=== PATIENT | male | born 1985 | race Caucasian/White ===

== ENCOUNTER 2023-01-17 21:46 | Emergency (ER) | payer OTHER, MEDICAID, SELFPAY ==
[2023-01-17 21:52] VITALS: BP 138/71; PULSE 66; RESP 17; TEMP 36.7; O2SAT 99; BMI 22.1
[2023-01-17 23:19] LABS: MANUAL DIFF FLAG NO
[2023-01-17 23:20] LABS: Basophils Absolute Auto 0.1 X10*3/uL (0.0-0.2); Basophils Percent Auto 1.1 % (0-2); Eosinophils Absolute Auto 0.3 X10*3/uL (0.0-0.4); Eosinophils Percent Auto 4.1 % (0-4); Hematocrit 34.3 % (42.0-52.0); Hemoglobin 11.8 g/dl (14.0-18.0); Imm Gran Abs Auto 0.01 X10*3/uL (0.00-0.03); Imm Gran Pct Auto 0.1 % (0.0-0.4); Lymphocytes Percent Auto 55.7 % (20-40); Mean Corpuscular HGB Conc 34.4 g/dl (31.0-36.0); Mean Corpuscular Hemoglobin 33.4 pg (27.0-33.0); Mean Corpuscular Volume 97.2 fL (80.0-98.0); Mean Platelet Volume 10.5 fL (9.4-12.4); Monocytes Absolute Auto 0.7 X10*3/uL (0.1-1.2); Monocytes Percent Auto 9.8 % (2-11); Neutrophils Absolute Auto 2.1 x10*3/uL (2.0-8.3); Neutrophils Percent Auto 29.2 % (45-73); Platelet Count 234 X10*3/uL (160-400); Red Blood Count 3.53 X10*6/uL (4.60-5.80); Red Cell Distribution Width 12.9 % (11.0-16.0); White Blood Count 7.1 X10*3/uL (4.8-10.8)
[2023-01-17 23:34] LABS: COVID-19 Test Negative (Negative); IDNOW Serial# 6674DD1D
[2023-01-17 23:35] LABS: Alanine Aminotransferase 21 U/L (0-40); Albumin Level 4.1 g/dL (3.5-5.0); Alkaline Phosphatase 62 U/L (39-117); Anion Gap 10 (12-20); Aspartate Amino Transferase 23 U/L (5-37); Bilirubin Total 0.3 mg/dL (0.0-1.0); Blood Urea Nitrogen 26 mg/dL (9-16); Calcium 9.2 mg/dL (8.4-10.2); Carbon Dioxide 30 mmol/L (22-29); Chloride 103 mmol/L (96-108); Creatinine Clr Calc Pharmacy 92.6; Estimated Glomerular Filt Rate > 60; Ethanol < 10 mg/dL; Glucose Random 73 mg/dL (60-115); Potassium 4.6 mmol/L (3.3-5.1); Sodium 138 mmol/L (135-145); Total Protein 6.9 g/dL (6.5-8.0)
[2023-01-17 23:43] LABS: Amphetamine Screen Urine Not Detected (Not Detect); Barbiturates, Urine Not Detected (Not Detect); Benzodiazepines Screen Urine Not Detected (Not Detect); Cannabinoid Screen Urine POSITIVE (Not Detect); Cocaine Screen Urine POSITIVE (Not Detect); Fentanyl, urine POSITIVE (Not Detect); Opiate Screen Urine POSITIVE (Not Detect); Phencyclidine Screen Urine Not Detected (Not Detect)
--- NOTE | 2023-01-18 01:57 | ED_ITS ---
HPI - Psych General Chief Complaint: Psychiatric Symptoms <BANDAR Miguel - Last Filed: 01/18/23 17:39> Stated Complaint: SI, NO PLAN PER EMS <BANDAR Miguel - Last Filed: 01/18/23 17:39> Time Seen by Provider: 01/17/23 22:27 <BANDAR Miguel - Last Filed: 01/18/23 17:39> Source: patient <BANDAR Miguel - Last Filed: 01/18/23 17:39> Mode of arrival: ambulatory <BANDAR Miguel - Last Filed: 01/18/23 17:39> Limitations: no limitations <BANDAR Miguel Last Filed: 01/18/23 17:39> History of Present Illness HPI Narrative: 37-year-old male presents to the ED for suicidal ideation. Patient was in [facility] when he made those comments. Patient has no actual plan. <BANDAR Miguel Last Filed: 01/18/23 17:39> Related Data Home Medications: Home Medications Medication Instructions Recorded Confirmed sertraline 50 mg tablet 50 mg PO DAILY 01/17/23 01/17/23 trazodone 50 mg tablet 50 mg PO BEDTIME 01/17/23 01/17/23 methadone 10 mg/mL oral concentrate 55 mg PO DAILY 01/18/23 01/18/23 <BANDAR Miguel - Last Filed: 01/18/23 17:39> Allergies/Adverse Reactions: Allergies Allergy/AdvReac Type Severity Reaction Status Date / Time No Known Allergies Allergy Verified 01/17/23 21:51 <BANDAR Miguel Last Filed: 01/18/23 17:39> Review of Systems Review of Systems: Suicidal ideation without any plan <BANDAR Miguel - Last Filed: 01/18/23 17:39> Yes all other systems are reviewed and are negative <BANDAR Miguel - Last Filed: 01/18/23 17:39> [facility] Social History Social History: Social History Advance Directives: No Advance Directives Information Provided: Yes Healthcare Proxy: No Guardian: No <BANDAR Miguel Last Filed: 01/18/23 17:39> Physical Exam Vital Signs: Vital Signs: Last Vital Signs Temp 97.3 F 01/18/23 09:08 Pulse 50 01/18/23 09:08 Resp 18 01/18/23 09:08 BP 129/68 01/18/23 09:08 Pulse Ox 100 01/18/23 09:08 O2 Del Method Room Air 01/18/23 09:08 BMI result Body Mass Index 22.1 <BANDAR Miguel Last Filed: 01/18/23 17:39> Vital Signs: Last Vital Signs Temp 97.3 F 01/18/23 09:08 Pulse 50 01/18/23 09:08 Resp 18 01/18/23 09:08 BP 129/68 01/18/23 09:08 Pulse Ox 100 01/18/23 09:08 O2 Del Method Room Air 01/18/23 09:08 BMI result Body Mass Index 22.1 <Kai Hurst MD - Last Filed: 01/18/23 07:53> Const: General: cooperative, healthy appearing, comfortable, no acute d istress, well developed, alert, awake and Physically active <BANDAR Miguel Last Filed: 01/18/23 17:39> Orientation/consciousness: oriented to person, oriented to place, oriented to time and patient oriented x3 <BANDAR Miguel Last Filed: 01/18/23 17:39> HEENT: Head: Yes normal to inspection, Yes No palpable skull fracture present, Yes normocephalic, Yes atraumatic and No abrasion <BANDAR Miguel Last Filed: 01/18/23 17:39> Eyes: General: appearance normal, both eyes and all related structures <BANDAR Miguel Last Filed: 01/18/23 17:39> Neck: Neck: Yes normal visual inspection, Yes full ROM, Yes no lymphadenopathy, Yes no meningeal signs, Yes trachea midline, Yes supple, No anterior neck swelling and No tender <BANDAR Miguel Last Filed: 01/18/23 17:39> Chest: Chest palpation & inspection: normal inspection of the chest and normal palpation of entire chest wall <BANDAR Miguel Last Filed: 01/18/23 17:39> Resp: Effort & Inspection: normal respiratory effort and able to speak in complete sentences <BANDAR Miguel Last Filed: 01/18/23 17:39> Auscultation: clear to auscultation bilaterally <BANDAR Miguel Last Filed: 01/18/23 17:39> Cardio: Jugular venous distension: no JVD <BANDAR Miguel Navneet Last Filed: 01/18/23 17:39> Heart sounds: S1 normal heart sound present and S2 normal heart sound present <BANDAR Miguel Navneet Last Filed: 01/18/23 17:39> GI: Inspection: Yes normal to inspection and No abdominal wall ecchymosis <BANDAR Miguel Navneet Last Filed: 01/18/23 17:39> Palpation (GI): Soft to palpation, not firm, nontender and not rigid <BANDAR Miguel Navneet Last Filed: 01/18/23 17:39> : General: No CVA tenderness and Yes no CVA tenderness <BANDAR Miguel Navneet Last Filed: 01/18/23 17:39> Back/Spine/Pelvis: Back: no CVA tenderness, No CVA tenderness and No back tenderness <BANDAR Miguel Navneet Last Filed: 01/18/23 17:39> Skin: General skin exam: no rashes or lesions noted and elasticity normal <BANDAR Miguel Navneet Last Filed: 01/18/23 17:39> Neuro: General: oriented to person, oriented to place, oriented to time, patient oriented x3, gait normal, moves all extremities, Normal light touch and pain sensation, no meningeal signs, no focal motor deficits, CN's II-XI intact bilaterally and normal sensation to monofilament <BANDAR Miguel Last Filed: 01/18/23 17:39> Extrem: General: Yes normal to inspection and Yes full ROM <BANDAR Miguel Last Filed: 01/18/23 17:39> Psych: Appearance: grossly normal, well kempt and not disheveled <BANDAR Miguel Last Filed: 01/18/23 17:39> Course Course Course Narrative: 37-year-old male suicidal ideation but no plan. <BANDAR Miguel Last Filed: 01/18/23 17:39> Reevaluation(s) Reevaluation #1: Labs are normal and at baseline. Patient denied any distress. Patient awaiting care team evaluation <BANDAR Miguel - Last Filed: 01/18/23 17:39> Time: 02:12 <BANDAR Miguel - Last Filed: 01/18/23 17:39> Reevaluation #2: Start physician observation. The patient has been in the emergency department for approximately 10 hours, he presented for evaluation depression and suicidal ideation. There were no reported incidents by nursing staff on this patient overnight . The patient urine tox screen was positive for opiates, fentanyl, cocaine and marijuana. The patient is waiting for care team evaluation. Patient's medications have been reconciled and I will order the medicines. <Kai Hurst MD - Last Filed: 01/18/23 07:53> Time: 07:35 <Kai Hurst MD - Last Filed: 01/18/23 07:53> Medications Administered Generic Name Dose Route Start Last Admin Trade Name Freq PRN Reason Stop Dose Admin Methadone HCl 55 mg 01/18/23 09:30 01/18/23 09:42 Methadone Hcl 20 Mg/2 Ml Oral.Conc PO 55 mg DAILY SHIRA Administration Sertraline HCl 50 mg 01/18/23 09:00 01/18/23 08:49 Sertraline Hcl 50 Mg Tablet PO 50 mg DAILY SHIRA Administration <BANDAR Miguel - Last Filed: 01/18/23 17:39> Medications Administered Generic Name Dose Route Start Last Admin Trade Name Freq PRN Reason Stop Dose Admin Methadone HCl 55 mg 01/18/23 09:30 01/18/23 09:42 Methadone Hcl 20 Mg/2 Ml Oral.Conc PO 55 mg DAILY SHIRA Administration Sertraline HCl 50 mg 01/18/23 09:00 01/18/23 08:49 Sertraline Hcl 50 Mg Tablet PO 50 mg DAILY SHIRA Administration <Kai Hurst MD - Last Filed: 01/18/23 07:53> Medical Decision Making Medical Decision Making MDM Narrative: Perineum with suicidal ideation without any plan. Patient to be comfortably. Clinical workup normal waiting care team evaluation <BANDAR Miguel - Last Filed: 01/18/23 17:39> Differential Diagnosis Differential Diagnoses: The differential diagnosis associated with the presentation includes (S uicidal, homicidal, depression,) <BANDAR Miguel - Last Filed: 01/18/23 17:39> Admission/Observation Consideration of admission/observation: Escalation of care including admission/observation considered <BANDAR Miguel - Last Filed: 01/18/23 17:39> Lab Data Result Diagrams: 01/17/23 23:13 01/17/23 23:13 <BANDAR Miguel - Last Filed: 01/18/23 17:39> Labs: Lab Results 01/17/23 01/17/23 01/17/23 Range/Units 23:13 23:13 23:13 WBC 7.1 (4.8-10.8) X10*3/uL RBC 3.53 L (4.60-5.80) X10*6/uL Hgb 11.8 L (14.0-18.0) g/dl Hct 34.3 L (42.0-52.0) % MCV 97.2 (80.0-98.0) fL MCH 33.4 H (27.0-33.0) pg MCHC 34.4 (31.0-36.0) g/dl RDW 12.9 (11.0-16.0) % Plt Count 234 (160-400) X10*3/uL MPV 10.5 (9.4-12.4) fL Immature Gran % (Auto) 0.1 (0.0-0.4) % Neut % (Auto) 29.2 L (45-73) % Lymph % (Auto) 55.7 H (20-40) % [place] % (Auto) 9.8 (2-11) % Eos % (Auto) 4.1 H (0-4) % Baso % (Auto) 1.1 (0-2) % Lymph # (Auto) 4.0 (1.2-4.9) X10*3/uL [place] # (Auto) 0.7 (0.1-1.2) X10*3/uL Eos # (Auto) 0.3 (0.0-0.4) X10*3/uL Baso # (Auto) 0.1 (0.0-0.2) X10*3/uL Abs Immat Gran (auto) 0.01 (0.00-0.03) X10*3/uL Absolute Neuts (auto) 2.1 (2.0-8.3) x10*3/uL Absolute Nucleated RBC 0.000 (0.0-0.012) X10*3/uL Nucleated RBC % (auto) 0.0 (0.0-0.2) /100WBC Sodium 138 (135-145) mmol/L Potassium 4.6 (3.3-5.1) mmol/L Chloride 103 (96-108) mmol/L Carbon Dioxide 30 H (22-29) mmol/L Anion Gap 10 L (12-20) BUN 26 H (9-16) mg/dL Creatinine 1.03 (0.5-1.4) mg/dL Estim Creat Clear Calc 92.6 Estimated GFR > 60 Random Glucose 73 (60-115) mg/dL Calcium 9.2 (8.4-10.2) mg/dL Total Bilirubin 0.3 (0.0-1.0) mg/dL AST 23 (5-37) U/L ALT 21 (0-40) U/L Alkaline Phosphatase 62 (39-117) U/L Total Protein 6.9 (6.5-8.0) g/dL Albumin 4.1 (3.5-5.0) g/dL Urine Opiates Screen (Not Detect) Urine Fentanyl Screen (Not Detect) Ur Barbiturates Screen (Not Detect) Ur Phencyclidine Scrn (Not Detect) Ur Amphetamines Screen (Not Detect) U Benzodiazepines Scrn (Not Detect) Urine Cocaine Screen (Not Detect) U Marijuana (THC) Screen (Not Detect) Ethyl Alcohol < 10 mg/dL COVID-19 (ANUJ) Negative (Negative) COVID-19 Clin Com See Note 01/17/23 Range/Units 23:27 WBC (4.8-10.8) X10*3/uL RBC (4.60-5.80) X10*6/uL Hgb (14.0-18.0) g/dl Hct (42.0-52.0) % MCV (80.0-98.0) fL MCH (27.0-33.0) pg MCHC (31.0-36.0) g/dl RDW (11.0-16.0) % Plt Count (160-400) X10*3/uL MPV (9.4-12.4) fL Immature Gran % (Auto) (0.0-0.4) % Neut % (Auto) (45-73) % Lymph % (Auto) (20-40) % [place] % (Auto) (2-11) % Eos % (Auto) (0-4) % Baso % (Auto) (0-2) % Lymph # (Auto) (1.2-4.9) X10*3/uL [place] # (Auto) (0.1-1.2) X10*3/uL Eos # (Auto) (0.0-0.4) X10*3/uL Baso # (Auto) (0.0-0.2) X10*3/uL Abs Immat Gran (auto) (0.00-0.03) X10*3/uL Absolute Neuts (auto) (2.0-8.3) x10*3/uL Absolute Nucleated RBC (0.0-0.012) X10*3/uL Nucleated RBC % (auto) (0.0-0.2) /100WBC Sodium (135-145) mmol/L Potassium (3.3-5.1) mmol/L Chloride (96-108) mmol/L Carbon Dioxide (22-29) mmol/L Anion Gap (12-20) BUN (9-16) mg/dL Creatinine (0.5-1.4) mg/dL Estim Creat Clear Calc Estimated GFR Random Glucose (60-115) mg/dL Calcium (8.4-10.2) mg/dL Total Bilirubin (0.0-1.0) mg/dL AST (5-37) U/L ALT (0-40) U/L Alkaline Phosphatase (39-117) U/L Total Protein (6.5-8.0) g/dL Albumin (3.5-5.0) g/dL Urine Opiates Screen POSITIVE H (Not Detect) Urine Fentanyl Screen POSITIVE H (Not Detect) Ur Barbiturates Screen Not Detected (Not Detect) Ur Phencyclidine Scrn Not Detected (Not Detect) Ur Amphetamines Screen Not Detected (Not Detect) U Benzodiazepines Scrn Not Detected (Not Detect) Urine Cocaine Screen POSITIVE H (Not Detect) U Marijuana (THC) Screen POSITIVE H (Not Detect) Ethyl Alcohol mg/dL COVID-19 (ANJU) (Negative) COVID-19 Clin Com <BANDAR Miguel - Last Filed: 01/18/23 17:39> Lab Results 01/17/23 01/17/23 01/17/23 Range/Units 23:13 23:13 23:13 WBC 7.1 (4.8-10.8) X10*3/uL RBC 3.53 L (4.60-5.80) X10*6/uL Hgb 11.8 L (14.0-18.0) g/dl Hct 34.3 L (42.0-52.0) % MCV 97.2 (80.0-98.0) fL MCH 33.4 H (27.0-33.0) pg MCHC 34.4 (31.0-36.0) g/dl RDW 12.9 (11.0-16.0) % Plt Count 234 (160-400) X10*3/uL MPV 10.5 (9.4-12.4) fL Immature Gran % (Auto) 0.1 (0.0-0.4) % Neut % (Auto) 29.2 L (45-73) % Lymph % (Auto) 55.7 H (20-40) % [place] % (Auto) 9.8 (2-11) % Eos % (Auto) 4.1 H (0-4) % Baso % (Auto) 1.1 (0-2) % Lymph # (Auto) 4.0 (1.2-4.9) X10*3/uL [place] # (Auto) 0.7 (0.1-1.2) X10*3/uL Eos # (Auto) 0.3 (0.0-0.4) X10*3/uL Baso # (Auto) 0.1 (0.0-0.2) X10*3/uL Abs Immat Gran (auto) 0.01 (0.00-0.03) X10*3/uL Absolute Neuts (auto) 2.1 (2.0-8.3) x10*3/uL Absolute Nucleated RBC 0.000 (0.0-0.012) X10*3/uL Nucleated RBC % (auto) 0.0 (0.0-0.2) /100WBC Sodium 138 (135-145) mmol/L Potassium 4.6 (3.3-5.1) mmol/L Chloride 103 (96-108) mmol/L Carbon Dioxide 30 H (22-29) mmol/L Anion Gap 10 L (12-20) BUN 26 H (9-16) mg/dL Creatinine 1.03 (0.5-1.4) mg/dL Estim Creat Clear Calc 92.6 Estimated GFR > 60 Random Glucose 73 (60-115) mg/dL Calcium 9.2 (8.4-10.2) mg/dL Total Bilirubin 0.3 (0.0-1.0) mg/dL AST 23 (5-37) U/L ALT 21 (0-40) U/L Alkaline Phosphatase 62 (39-117) U/L Total Protein 6.9 (6.5-8.0) g/dL Albumin 4.1 (3.5-5.0) g/dL Urine Opiates Screen (Not Detect) Urine Fentanyl Screen (Not Detect) Ur Barbiturates Screen (Not Detect) Ur Phencyclidine Scrn (Not Detect) Ur Amphetamines Screen (Not Detect) U Benzodiazepines Scrn (Not Detect) Urine Cocaine Screen (Not Detect) U Marijuana (THC) Screen (Not Detect) Ethyl Alcohol < 10 mg/dL COVID-19 (ANUJ) Negative (Negative) COVID-19 Clin Com See Note 01/17/23 Range/Units 23:27 WBC (4.8-10.8) X10*3/uL RBC (4.60-5.80) X10*6/uL Hgb (14.0-18.0) g/dl Hct (42.0-52.0) % MCV (80.0-98.0) fL MCH (27.0-33.0) pg MCHC (31.0-36.0) g/dl RDW (11.0-16.0) % Plt Count (160-400) X10*3/uL MPV (9.4-12.4) fL Immature Gran % (Auto) (0.0-0.4) % Neut % (Auto) (45-73) % Lymph % (Auto) (20-40) % [place] % (Auto) (2-11) % Eos % (Auto) (0-4) % Baso % (Auto) (0-2) % Lymph # (Auto) (1.2-4.9) X10*3/uL [place] # (Auto) (0.1-1.2) X10*3/uL Eos # (Auto) (0.0-0.4) X10*3/uL Baso # (Auto) (0.0-0.2) X10*3/uL Abs Immat Gran (auto) (0.00-0.03) X10*3/uL Absolute Neuts (auto) (2.0-8.3) x10*3/uL Absolute Nucleated RBC (0.0-0.012) X10*3/uL Nucleated RBC % (auto) (0.0-0.2) /100WBC Sodium (135-145) mmol/L Potassium (3.3-5.1) mmol/L Chloride (96-108) mmol/L Carbon Dioxide (22-29) mmol/L Anion Gap (12-20) BUN (9-16) mg/dL Creatinine (0.5-1.4) mg/dL Estim Creat Clear Calc Estimated GFR Random Glucose (60-115) mg/dL Calcium (8.4-10.2) mg/dL Total Bilirubin (0.0-1.0) mg/dL AST (5-37) U/L ALT (0-40) U/L Alkaline Phosphatase (39-117) U/L Total Protein (6.5-8.0) g/dL Albumin (3.5-5.0) g/dL Urine Opiates Screen POSITIVE H (Not Detect) Urine Fentanyl Screen POSITIVE H (Not Detect) Ur Barbiturates Screen Not Detected (Not Detect) Ur Phencyclidine Scrn Not Detected (Not Detect) Ur Amphetamines Screen Not Detected (Not Detect) U Benzodiazepines Scrn Not Detected (Not Detect) Urine Cocaine Screen POSITIVE H (Not Detect) U Marijuana (THC) Screen POSITIVE H (Not Detect) Ethyl Alcohol mg/dL COVID-19 (ANUJ) (Negative) COVID-19 Clin Com <Kai Hurst MD - Last Filed: 01/18/23 07:53> Discharge Plan Discharge Clinical Impression: Depression <BANDAR Miguel - Last Filed: 01/18/23 17:39> Patient Disposition: Still a Patient <BANDAR Mgiuel - Last Filed: 01/18/23 17:39> Prescriptions: No Action trazodone 50 mg tablet 50 mg PO BEDTIME sertraline 50 mg tablet 50 mg PO DAILY methadone 10 mg/mL Concentrate 55 mg PO DAILY <BANDAR Miguel - Last Filed: 01/18/23 17:39> Interventions: [place]-Suicide Risk Severity Scale Last Done: 01/18/23 02:10 <BANDAR Miguel - Last Filed: 01/18/23 17:39>
--- NOTE | 2023-01-18 04:41 | PC.NURSE ---
Patient slept through the night, no distress observed/reported, med rec completed/pending provider's approval, pending methadone verification [facility] clinic in [place] opens at 7 am today, verification paper ready, behavior non concerning, care consult ordered pending evaluation, will continue to monitor
[2023-01-18 06:13] VITALS: BP 100/59; PULSE 50; RESP 16; TEMP 36.4; O2SAT 97
--- NOTE | 2023-01-18 07:52 | PHA.MEDREC ---
Pharmacy Consult ? Medication Reconciliation Pharmacy has completed the medication reconciliation. Pharmacy has reviewed the med rec done by Jamshid.
[2023-01-18] MEDS: Sertraline HCL 50 MG TABLET PO (08:49)
[2023-01-18 09:08] VITALS: BP 129/68; PULSE 50; RESP 18; TEMP 36.3; O2SAT 100
--- NOTE | 2023-01-18 09:36 | HE.PHANOTE ---
Re: methadone verification [facility] last dose 55 mg on 01/17/23 @0746 verified with [facility] on 01/18/23
[2023-01-18] MEDS: methADONE HCl 20 MG/2 ML ORAL.CONC 55 MG PO (09:42)
[2023-01-18 19:53] VITALS: BP 126/69; PULSE 54; RESP 16; TEMP 36.8; O2SAT 96
[2023-01-18] MEDS: traZODone HCL 50 MG TABLET PO (20:36)
--- NOTE | 2023-01-18 21:00 | PC.NURSE ---
pt medicated per nov, resting comfortably on stretcher in no apparent distress, chocolate pudding given per pt request. will CTM.
--- NOTE | 2023-01-18 23:57 | PC.NURSE ---
Pt sleeping, respirations even and unlabored, no apparent distress at this time
--- NOTE | 2023-01-19 06:10 | PC.NURSE ---
pt continued to sleep throughout night without incident, respirations remained equal and unlabored, no apparent distress. Continue plan of care for inpatient re-evaluation
--- NOTE | 2023-01-19 06:47 | PC.NURSE ---
pt refusing vital signs at this time
[2023-01-19 08:21] VITALS: RESP 12
--- NOTE | 2023-01-19 10:00 | PC.NURSE ---
pt is a/o x 3 no sob/rhina noted speaks in full sentences. pt denies any pain/disc
[2023-01-19] MEDS: Sertraline HCL 50 MG TABLET PO (10:05)
[2023-01-19] MEDS: methADONE HCl 20 MG/2 ML ORAL.CONC 55 MG PO (10:06)
[2023-01-19] MEDS: LORazepam 1 MG TABLET 2 MG PO (10:16)
[2023-01-19 11:36] VITALS: RESP 16
--- NOTE | 2023-01-19 11:50 | PM.PSYCN ---
History of Present Illness Date of Service: 01/19/2023 Chief Complaint: SI, NO PLAN PER EMS Reason for Consult: SI Requesting physician: Jeanmarie Crain Discussed with referring provider: Yes Sources of Information: patient interviewed, chart reviewed and crisis/core team assessment reviewed HPI Narrative: Mr. Christopher is a 37 year-old male with hx of opioid (on methadone), cocaine use disorder who was brought via EMS from [facility]. Apparently, pt self presented to [facility] reporting suicidal ideation. In the ED- utox was positive for fentanyl, opioids, cocaine. Pt was seen by care team yesterday and pt reported suicidal ideation with plan to OD. Today, pt denies suicidal ideation or homicidal ideation and requests to be discharged. Pt seen in the ED. Pt reports yesterday he was having thoughts of wanting to hurt himself. He denies ever reporting homicidal ideation. Pt reports he spoke with the staff here yesterday, who pt claims, talk me out of hurting myself. Pt reports sleeping and eating well. He does report that he does not have a stable place to stay and it was good for him to rest here in the ED. He denies psychosis and does not present with s/s of responding to internal stimuli. He declines referrals for substance use. He reports he will be open to take list of mental health clinics. Pt asks if he can take a shower and eat lunch before leaving. Diagnostics Vital Signs (24Hr): Vital Signs - 24 hr 01/18/23 19:53 01/19/23 08:21 01/19/23 11:36 Temperature 98.3 F Pulse Rate 54 Respiratory Rate 16 12 16 Blood Pressure 126/69 Pulse Oximetry 96 Oxygen Delivery Method Room Air BMI result Body Mass Index 22.1 Labs 01/17/23 23:13 01/17/23 23:13 Labs: Laboratory Results - last 48 hr 01/17/23 01/17/23 01/17/23 23:13 23:13 23:13 WBC 7.1 RBC 3.53 L Hgb 11.8 L Hct 34.3 L MCV 97.2 MCH 33.4 H MCHC 34.4 RDW 12.9 Plt Count 234 MPV 10.5 Immature Gran % (Auto) 0.1 Neut % (Auto) 29.2 L Lymph % (Auto) 55.7 H [place] % (Auto) 9.8 Eos % (Auto) 4.1 H Baso % (Auto) 1.1 Lymph # (Auto) 4.0 [place] # (Auto) 0.7 Eos # (Auto) 0.3 Baso # (Auto) 0.1 Abs Immat Gran (auto) 0.01 Absolute Neuts (auto) 2.1 Absolute Nucleated RBC 0.000 Nucleated RBC % (auto) 0.0 Sodium 138 Potassium 4.6 Chloride 103 Carbon Dioxide 30 H Anion Gap 10 L BUN 26 H Creatinine 1.03 Estim Creat Clear Calc 92.6 Estimated GFR > 60 Random Glucose 73 Calcium 9.2 Total Bilirubin 0.3 AST 23 ALT 21 Alkaline Phosphatase 62 Total Protein 6.9 Albumin 4.1 Urine Opiates Screen Urine Fentanyl Screen Ur Barbiturates Screen Ur Phencyclidine Scrn Ur Amphetamines Screen U Benzodiazepines Scrn Urine Cocaine Screen U Marijuana (THC) Screen Ethyl Alcohol < 10 COVID-19 (ANUJ) Negative COVID-19 Clin Com See Note 01/17/23 23:27 WBC RBC Hgb Hct MCV MCH MCHC RDW Plt Count MPV Immature Gran % (Auto) Neut % (Auto) Lymph % (Auto) [place] % (Auto) Eos % (Auto) Baso % (Auto) Lymph # (Auto) [place] # (Auto) Eos # (Auto) Baso # (Auto) Abs Immat Gran (auto) Absolute Neuts (auto) Absolute Nucleated RBC Nucleated RBC % (auto) Sodium Potassium Chloride Carbon Dioxide Anion Gap BUN Creatinine Estim Creat Clear Calc Estimated GFR Random Glucose Calcium Total Bilirubin AST ALT Alkaline Phosphatase Total Protein Albumin Urine Opiates Screen POSITIVE H Urine Fentanyl Screen POSITIVE H Ur Barbiturates Screen Not Detected Ur Phencyclidine Scrn Not Detected Ur Amphetamines Screen Not Detected U Benzodiazepines Scrn Not Detected Urine Cocaine Screen POSITIVE H U Marijuana (THC) Screen POSITIVE H Ethyl Alcohol COVID-19 (ANUJ) COVID-19 Clin Com Mental Status Exam Mental Status Exam Narrative: Appearance: wearing hospital gown, fair hygiene (improved after showered), in NAD Behavior: superficially cooperative Psychomotor: no agitation or retardation noted Speech: clear, normal rate/rhythm/volume, spontaneous TP: linear TC: no signs of psychosis, future oriented Mood: better Affect: congruent, non labile SI: adamantly denies HI: denies VH/AH: none Delusions: none Insight/judgment: poor x 2. Memory/cog: alert, oriented x 3. grossly intact to conversational testing. Medications Medications Current Medications Lorazepam (Lorazepam 1 Mg Tablet) 2 mg PO ONCE PRN PRN Reason: Anxiety Last Admin: 01/19/23 10:16 Dose: 2 mg Methadone HCl (Methadone Hcl 20 Mg/2 Ml Oral.Conc) 55 mg PO DAILY [facility] Last Admin: 01/19/23 10:06 Dose: 55 mg Sertraline HCl (Sertraline Hcl 50 Mg Tablet) 50 mg PO DAILY [facility] Last Admin: 01/19/23 10:05 Dose: 50 mg Trazodone HCl (Trazodone Hcl 50 Mg Tablet) 50 mg PO BEDTIME [facility] Last Admin: 01/18/23 20:36 Dose: 50 mg Allergies Allergies Allergy/AdvReac Type Severity Reaction Status Date / Time No Known Allergies Allergy Verified 01/17/23 21:51 Assessment & Plan Assessment & Plan (1) Cocaine use disorder, moderate, dependence: Status: Acute Code(s): F14.20 - Cocaine dependence, uncomplicated (2) Opioid use disorder, moderate, dependence: Status: Acute Code(s): F11.20 - Opioid dependence, uncomplicated Plan Mr. Christopher is a 37 year-old male with hx of opioid, cocaine use disorder who initially self presented to [facility] reporting SI, was transported via EMS from [facility] to [facility] ED. In the ED his utox is positive for opioids, fentanyl, cocaine. Yesterday, pt reported suicidal and homicidal ideation if discharged to less restrictive setting. Today, pt reports he is feeling better, denies suicidal or homicidal ideation. He does report that resting in hospital had most benefit. He does not appear with any signs of psychosis or delusions. His thought process is linear and logical and suspect secondary gains with initial report to stay over night here in the hospital given that he does not have a stable place to live. He declines referrals for substance use. Pt given list of outpatient mental health resources should he changes his mind. Pt was given narcan prior to discharge. PLAN- No need for inpatient psych admission: Mr. Christopher does not appear at imminent risk of harming self due to suicidal or homicidal ideation. It appears, as he admits to this short story writer today, that he had hope to stay over night as he lacks stable housing. He does have chronic risk of harm due to ongoing substance use- pt at this point declines referrals to further dual dx treatment program. WE discussed at length harm reduction and was given narcan prior to discharge. He was also given list of mental health and substance use treatment resources in the community. Total time managing care of this patient today __30__ minutes.
[2023-01-19 13:00] VITALS: BP 119/74; PULSE 62; RESP 16; TEMP 36.6; O2SAT 97
[2023-01-19] MEDS: Naloxone HCl Nasal TAKE HOME 4 MG SPRAY NOSTRILALT (13:45)
== END 2023-01-19 14:18 | disposition home or self-care (01) ==
PROVIDERS: Emergency Medicine; Emergency Provider Emergency Medicine Emergency Medical Services
DX: F32.A Depression, unspecified (principal); R45.851 Suicidal ideations; Z20.822 Contact with and (suspected) exposure to COVID-19; F20.9 Schizophrenia, unspecified; F14.20 Cocaine dependence, uncomplicated; F11.20 Opioid dependence, uncomplicated; Z79.899 Other long term (current) drug therapy
CPT/HCPCS: 36415; 80053; 80307; 82077; 85025; 87635; 99284; 99285; S9485

== ENCOUNTER 2023-01-22 23:28 | Emergency (ER) | payer MEDICAID, OTHER, SELFPAY ==
[2023-01-22 23:32] VITALS: BP 123/68; PULSE 52; RESP 17; TEMP 36.6; O2SAT 97; BMI 22.1
--- NOTE | 2023-01-22 23:59 | ED.PSYCH ---
HPI - Psych General Chief Complaint: Psychiatric Symptoms Stated Complaint: Crisis SI Time Seen by Provider: 01/22/23 23:30 Source: patient and EMS Mode of arrival: EMS History of Present Illness HPI Narrative: Patient comes to the emergency room via ambulance complaining of suicidal ideation. Patient states that he was thinking about jumping off a bridge. Patient admits substance abuse. Related Data Home Medications Medication Instructions Recorded Confirmed sertraline 50 mg tablet 50 mg PO DAILY 01/17/23 01/22/23 trazodone 50 mg tablet 50 mg PO BEDTIME 01/17/23 01/22/23 methadone 10 mg/mL oral concentrate 55 mg PO DAILY 01/18/23 01/18/23 Allergies Allergy/AdvReac Type Severity Reaction Status Date / Time No Known Allergies Allergy Verified 01/17/23 21:51 Review of Systems Review of Systems: Constitutional : No Weight loss, No Fever, No Chills, No Night Sweats, No Fatigue, No Malaise ENT/Mouth : No Hearing loss, No Ear Pain, No Nasal Congestion, No Sinus Pain, No Hoarseness, No sore throat, No Rhinorrhea, No Swallowing Difficulty Eyes: No Eye Pain, No Swelling, No Redness, No Foreign Body, No Discharge, No Vision Changes Cardiovascular : No Chest Pain, No SOB, No Dyspnea on Exertion, No Orthopnea, No Edema, No Palpitations Respiratory : No Cough, No Sputum, No Wheezing, No Smoke Exposure, No Dyspnea Gastrointestinal : No Nausea, No Vomiting, No Diarrhea, No Constipation, No abdominal Pain, No Hematochezia, No Melena Genitourinary : no irregular bleeding, No Dysuria, No Urinary Frequency, No Hematuria, No Urinary Incontinence, No Urgency, No Flank Pain, No Urinary Flow Changes, No Hesitancy Musculoskeletal : No joint pain, No Myalgias, No Joint Swelling Skin : No Skin Lesions, No rash Neuro : No Weakness, No Numbness, No Paresthesias, No Loss of Consciousness, No Dizziness, No Headache Psych : Denies anxiety, complaining of suicidal ideation with plan of jumping off a bridge. Heme/Lymph: No Bruising, No Bleeding,No Lymphadenopathy Endocrine : No Polyuria, No Polydipsia, No Temperature Intolerance PMF Past Medical History Medical History (Updated 01/23/23 @ 00:04 by Concepcion Velásquez MD) Cocaine use disorder, moderate, dependence Opioid use disorder, moderate, dependence Social History Social History Advance Directives: No Advance Directives Information Provided: Yes Physical Exam Vital Signs: Vital Signs: Last Vital Signs Temp 98 F 01/22/23 23:32 Pulse 52 01/22/23 23:32 Resp 17 01/22/23 23:32 BP 123/68 01/22/23 23:32 Pulse Ox 97 01/22/23 23:32 O2 Del Method Room Air 01/22/23 23:32 BMI result Body Mass Index 22.1 Const: Other: Appearance: Alert. Oriented X3. No acute distress. Eyes: Pupils equal, round and reactive to light. ENT: Pharynx normal. Neck: Normal inspection. Neck supple. No lymph nodes noted. No crepitus CVS: Normal heart rate and rhythm. Pulses normal. Normal S1 and S2 Respiratory: No respiratory distress. Breath sounds normal. No Wheezing. No rales Abdomen: Soft and nontender. No rigidity. No distention. Skin: Skin warm and dry. Normal skin color. Normal skin turgor. Extremities: No lower extremity edema. No Lacerations. No Rash Neuro: Oriented X 3. No motor deficit. No sensory deficit. Moving all extremities. No slurred speech. CN 2 through 12 grossly intact Psych: calm, cooperative, normal affect Course Course Course Narrative: -labs pending -patient requested to eat and drink and to let him sleep -care team consult pending -physician observation started at midnight Discharge Plan Discharge Clinical Impression: Suicidal ideation, Cocaine use disorder, moderate, dependence Patient Disposition: Still a Patient Prescriptions: No Action trazodone 50 mg tablet 50 mg PO BEDTIME sertraline 50 mg tablet 50 mg PO DAILY methadone 10 mg/mL Concentrate 55 mg PO DAILY
[2023-01-23 00:14] LABS: Ethanol < 10 mg/dL
[2023-01-23 00:18] LABS: COVID-19 Test Negative (Negative); IDNOW Serial# 6674DD1D
[2023-01-23] MEDS: traZODone HCL 50 MG TABLET PO (00:32)
--- NOTE | 2023-01-23 04:36 | PC.NURSE ---
Patient slept through the night, no distress observed/reported, med rec completed/pending provider's approval, pending Methadone dose verification/paper work ready for verification process/clinic opens at 8 am, patient was unable to provide urine for POWERS but compliant with blood draw and covid swab and negative for both, care consult ordered/pending evaluation in the morning, Trazodone 50 mg administered at 0032 with + effect, VSS, will continue to monitor.
--- NOTE | 2023-01-23 08:10 | PC.NURSE ---
Pt sleeping. Methadone dose 55mg last given 01/22/23 @ 0730 confirmed by Teena DUBOIS [facility]
--- NOTE | 2023-01-23 08:25 | HE.PHANOTE ---
RE METHADONE 55 MG FROM [facility] M[facility]ADONE [facility] [place], LAST DOSE GIVEN 01/22 @9283 VIC
[2023-01-23] MEDS: methADONE HCl 20 MG/2 ML ORAL.CONC 55 MG PO (10:09)
[2023-01-23 10:19] VITALS: BP 119/77; PULSE 57; RESP 16; TEMP 36.6; O2SAT 99
[2023-01-23 10:37] LABS: Appearance Urine Clear; Color Urine Yellow; Glucose Urine UA Negative (Negative); Leukocyte Esterase Urine Negative (Negative); Nitrite Urine Negative (Negative); PH 6.5 (5.0-9.0); Urine Blood Negative (Negative); Urine Ketones Negative (Negative); Urine Protein Negative (Neg-Trace)
[2023-01-23 10:47] LABS: Amphetamine Screen Urine Not Detected (Not Detect); Barbiturates, Urine Not Detected (Not Detect); Benzodiazepines Screen Urine Not Detected (Not Detect); Cannabinoid Screen Urine POSITIVE (Not Detect); Cocaine Screen Urine POSITIVE (Not Detect); Fentanyl, urine POSITIVE (Not Detect); Opiate Screen Urine POSITIVE (Not Detect); Phencyclidine Screen Urine Not Detected (Not Detect)
== END 2023-01-23 11:38 | disposition home or self-care (01) ==
PROVIDERS: Emergency Provider Emergency Medicine
DX: R45.851 Suicidal ideations (principal); F14.29 Cocaine dependence with unspecified cocaine-induced disorder; F11.20 Opioid dependence, uncomplicated; Z20.822 Contact with and (suspected) exposure to COVID-19; Z79.899 Other long term (current) drug therapy
CPT/HCPCS: 36415; 80307; 81003; 82077; 87635; 99284; S9485

== ENCOUNTER 2023-01-23 17:25 | Emergency (ER) | payer MEDICAID, SELFPAY ==
--- NOTE | 2023-01-23 17:33 | ED.PSYCH ---
HPI - Psych General Stated Complaint: SI Time Seen by Provider: 01/23/23 17:32 Source: patient and EMS Mode of arrival: EMS Limitations: no limitations History of Present Illness HPI Narrative: 37-year-old male with history substance abuse, depression presents with suicidal ideation. Patient reportedly was broken up with his girlfriend today. He reports having done ?everything to make things right. ?. He says she wants to walk out of his life. Patient does admit to using drugs but not today. In the he denies any alcohol today. Apparently tried to jump off of a bridge. Patient presents voluntarily for evaluation. Crisis and police were involved in his care prior to arrival. Patient denies any additional medical complaints at this time. Patient describes symptoms as severe in nature. It is exacerbated by his current social situation. There are no relieving features. He did not take his medications today. Suicide attempt or other self-harming behavior. Related Data Home Medications Medication Instructions Recorded Confirmed sertraline 50 mg tablet 50 mg PO DAILY 01/17/23 01/22/23 trazodone 50 mg tablet 50 mg PO BEDTIME 01/17/23 01/22/23 methadone 10 mg/mL oral concentrate 55 mg PO DAILY 01/18/23 01/23/23 Allergies Allergy/AdvReac Type Severity Reaction Status Date / Time No Known Allergies Allergy Verified 01/17/23 21:51 [facility] Past Medical History Medical History Cocaine use disorder, moderate, dependence Opioid use disorder, moderate, dependence Physical Exam Vital Signs: GEN: Well developed, no acute distress, alert, oriented HEENT: Normocephalic, atraumatic, normal external ears, nose appears normal, no oropharyngeal edema or exudates Eyes: Normal to appearance Neck: Supple, no lymphadenopathy Respiratory: Talks in complete sentences, no respiratory distress, clear to auscultation bilaterally Cardiovascular: Regular rate and rhythm, no murmurs rubs or gallops Abdomen: Soft, nontender, nondistended, no guarding, no rebound Back: No CVA tenderness Extremities: No clubbing cyanosis or edema Neurologic: No focal neurologic deficits, cranial nerves 2-12 intact, strength is 5/5 bilaterally Skin: No rash Course Course Course Narrative: Patient presents with suicidal ideation. Patient's history substance abuse. He is alert, oriented with no focal deficits. Pain patient reportedly attempted to jump off a bridge. Tingling operative at this time. He will be assessed by our behavioral health team. Routine medical clearance will be attempted via laboratory analysis, drug screen. Medical Decision Making Medical Decision Making [facility] Narrative: 37-year-old male presents for psychiatric evaluation. Patient is suicidal. He reportedly attempted to jump off of a bridge or wants to jump off of a bridge. He denies any drug or alcohol use today. He does use heroin from time to time. He is on methadone but did not take his dose today. Routine laboratory analysis for medical clearance will be performed. He will be placed in our Behavioral Health pot for his protection as well as for further assessment. Differential Diagnosis Differential Diagnoses: The differential diagnosis associated with the presentation includes (Depression, anxiety, PTSD, mood disorder, adjustment reaction, acute stress reaction, suicidal ideation) Admission/Observation Consideration of admission/observation: Escalation of care including admission/observation considered Lab Data [facility] Lab Attestation statement: I reviewed the patient's lab results. Independent Historian Clinical information obtained from an independent historian. History obtained from or confirmed by: EMS External Record Review External record reviewed: Other (Psychiatric consultation) Chronic Conditions Patient?s care impacted by: Other (Polysubstance abuse) Discharge Plan Discharge Clinical Impression: Suicidal ideation, Opioid use disorder, moderate, dependence Patient Disposition: Still a Patient Prescriptions: No Action trazodone 50 mg tablet 50 mg PO BEDTIME sertraline 50 mg tablet 50 mg PO DAILY methadone 10 mg/mL Concentrate 55 mg PO DAILY
[2023-01-23 17:44] VITALS: BP 111/76; BP 132/80; PULSE 77; PULSE 84; RESP 18; TEMP 36.6; O2SAT 99; BMI 20.7
[2023-01-23 19:15] LABS: MANUAL DIFF FLAG NO
[2023-01-23 19:22] LABS: Basophils Absolute Auto 0.1 X10*3/uL (0.0-0.2); Basophils Percent Auto 0.8 % (0-2); Eosinophils Absolute Auto 0.3 X10*3/uL (0.0-0.4); Hematocrit 37.1 % (42.0-52.0); Hemoglobin 12.1 g/dl (14.0-18.0); Imm Gran Abs Auto 0.02 X10*3/uL (0.00-0.03); Imm Gran Pct Auto 0.2 % (0.0-0.4); Lymphocytes Absolute Auto 4.1 X10*3/uL (1.2-4.9); Lymphocytes Percent Auto 43.6 % (20-40); Mean Corpuscular HGB Conc 32.6 g/dl (31.0-36.0); Mean Corpuscular Hemoglobin 32.2 pg (27.0-33.0); Mean Corpuscular Volume 98.7 fL (80.0-98.0); Mean Platelet Volume 10.4 fL (9.4-12.4); Monocytes Absolute Auto 0.5 X10*3/uL (0.1-1.2); Monocytes Percent Auto 5.3 % (2-11); Neutrophils Absolute Auto 4.4 x10*3/uL (2.0-8.3); Neutrophils Percent Auto 47.1 % (45-73); Platelet Count 233 X10*3/uL (160-400); Red Blood Count 3.76 X10*6/uL (4.60-5.80); Red Cell Distribution Width 12.6 % (11.0-16.0); White Blood Count 9.3 X10*3/uL (4.8-10.8)
[2023-01-23 19:37] LABS: COVID-19 Test Negative (Negative); IDNOW Serial# 08D9AD1C
[2023-01-23 20:08] LABS: Acetaminophen LAB < 17 mcg/mL (<30); Alanine Aminotransferase 16 U/L (0-40); Albumin Level 4.2 g/dL (3.5-5.0); Alkaline Phosphatase 67 U/L (39-117); Anion Gap 11 (12-20); Aspartate Amino Transferase 26 U/L (5-37); Bilirubin Total 0.5 mg/dL (0.0-1.0); Blood Urea Nitrogen 17 mg/dL (9-16); Calcium 9.6 mg/dL (8.4-10.2); Carbon Dioxide 29 mmol/L (22-29); Chloride 105 mmol/L (96-108); Creatinine Clr Calc Pharmacy 94.7; Estimated Glomerular Filt Rate > 60; Ethanol < 10 mg/dL; Glucose Random 82 mg/dL (60-115); Potassium 4.8 mmol/L (3.3-5.1); Salicylate < 5.0 mg/dL (15-30); Sodium 140 mmol/L (135-145); Total Protein 7.1 g/dL (6.5-8.0)
[2023-01-23 22:37] LABS: Amphetamine Screen Urine Not Detected (Not Detect); Barbiturates, Urine Not Detected (Not Detect); Benzodiazepines Screen Urine Not Detected (Not Detect); Cannabinoid Screen Urine POSITIVE (Not Detect); Cocaine Screen Urine POSITIVE (Not Detect); Opiate Screen Urine Not Detected (Not Detect); Phencyclidine Screen Urine Not Detected (Not Detect)
[2023-01-23 22:43] LABS: Fentanyl, urine POSITIVE (Not Detect)
[2023-01-23] MEDS: traZODone HCL 50 MG TABLET PO (22:54)
[2023-01-24 04:16] VITALS: BP 115/74; PULSE 68; RESP 17; TEMP 36.6; O2SAT 99
--- NOTE | 2023-01-24 06:27 | PC.NURSE ---
Patient slept through the night, no distress observed/reported, behavior non concerning, care team met with patient, disposition is NICO follow up, patient will be re-evaluated in the morning, med rec completed/pending provider's approval, VSS, will continue to monitor.
[2023-01-24] MEDS: Sertraline HCL 50 MG TABLET PO (09:16)
[2023-01-24] MEDS: methADONE HCl 20 MG/2 ML ORAL.CONC 55 MG PO (09:16)
[2023-01-24 10:29] VITALS: BP 119/81; PULSE 62; RESP 16; TEMP 36.8; O2SAT 99
--- NOTE | 2023-01-24 14:45 | MHC.CARE ---
patient is currently considering an inpatient LOC admission. plan to re-evaluated in the morning or when/ if patient decides he would like to be a voluntary admission or d/c
[2023-01-24] MEDS: traZODone HCL 50 MG TABLET PO (21:00)
[2023-01-25 06:04] VITALS: BP 122/84; PULSE 68; RESP 17; TEMP 36.9; O2SAT 97
--- NOTE | 2023-01-25 06:22 | PC.NURSE ---
Patient slept through the night, no distress observed/reported, behavior non concerning, medication compliant, disposition pending per care team possible discharge, VSS, no safety concerns, will continue to monitor.
[2023-01-25] MEDS: Sertraline HCL 50 MG TABLET PO (09:48)
[2023-01-25] MEDS: methADONE HCl 20 MG/2 ML ORAL.CONC 55 MG PO (09:49)
--- NOTE | 2023-01-25 10:20 | PC.NURSE ---
Pt alert and oriented. Being discharged to [facility].
== END 2023-01-25 10:59 | disposition home or self-care (01) ==
PROVIDERS: Emergency Provider Emergency Medicine
DX: R45.851 Suicidal ideations (principal); F11.20 Opioid dependence, uncomplicated; F14.20 Cocaine dependence, uncomplicated; Z79.899 Other long term (current) drug therapy
CPT/HCPCS: 36415; 80053; 80143; 80179; 80307; 82077; 85025; 87635; 99284; 99285